=== PATIENT | male | born 2000 | race Caucasian/White ===

== ENCOUNTER 2021-07-04 09:08 | Emergency (ER) | payer MEDICAID ==
[~2021-07-04] VITALS: Ht 177.8 cm; Wt 90.0 kg
[2021-07-04 09:09] VITALS: BP 141/85
[2021-07-04] MEDS ORDERED: dexamethasone sod phosphate 10mg/ml inj IV STA (09:38)
[2021-07-04] MEDS ORDERED: triamcinolone acetonide 40mg/ml inj IM ONE (09:40)
== END 2021-07-04 10:06 | disposition home or self-care (01) ==
LOC: ER 09:08
DX: L23.9 Allergic contact dermatitis, unspecified cause (principal)
CPT/HCPCS: 96372; 96374; 99284; J1100; J3301